=== PATIENT | female | born 1995 | race Caucasian/White ===

== ENCOUNTER 2017-08-09 23:00 | Emergency (ER) | payer SELFPAY ==
[~2017-08-09] VITALS: Ht 167.6 cm; Wt 81.0 kg
[2017-08-09 23:02] VITALS: BP 129/85; PULSE 91; RESP 16; TEMP 98.1; O2SAT 98
[2017-08-10 00:38] VITALS: BP 124/73; PULSE 71; RESP 18; TEMP 98.6; O2SAT 100
--- NOTE | 2017-08-10 00:53 | PD ---
HPI Chief Complaint: Eye Problems/Injury Time Seen by Provider: 00:43 Travel History International Travel<30 days: No Contact w/Intl Traveler<30days: No Traveled to known affect area: No History of Present Illness HPI The patient is a 22 year old female who presents to the [facility] emergency department with a history of swelling to the right eye that began again 2 days ago. It is painful. She has had a clear to yellow drainage. She has been doing warm compresses every 2 hours. She first started 4 years ago. She has had cough and congestion for the last 2 days. She has intermittent swelling of the bump every 2 months, but the last time her eye became this swollen was a year and a half ago. She saw an eye doctor at that time that recommended no additional treatment. The patient reports that she does wear contacts and eye glasses. She reports her vision is poor that she requires both. She is currently wearing her contacts. She reports that she suffers from macular degeneration and astigmatism. She reports that she is legally blind. Review of systems otherwise, the patient denies having any neck pain, chest pain, shortness of breath, abdominal pain, vomiting, diarrhea, urinary symptoms, or neurologic symptoms. LMP: beginning of July. H/O Irregular cycles. Status post BTL. [facility] Past Medical History Narrative Medical The patient's past medical history is significant for right eye cyst in the upper eyelid, macular degeneration of the eyes, astigmatism, anxiety, frequent utis. Autoimmune Disease: No Blood Disorders: No Anxiety: Yes Depression: No Cardiovascular Problems: No Developmental Delay: No Diminished Hearing: No Gastrointestinal Disorders: No Genitourinary: Yes (HX UTI; MULTIPLE YEAST INFECTIONS) Musculoskeletal: No Neurologic: Yes Psychiatric: Yes Reproductive: Yes (MULTIPLE YEAST INFECTIONS ) Respiratory: No Immunizations Current: Yes Tetanus Vaccination: < 5 Years Influenza Vaccination: No ?: Not : 2 Para: 1 Miscarriage: 0 : 0 Past Surgical History Narrative Surgical The patient's past surgical history is significant for c-sections x2, BTL. Section: Yes Gynecologic Surgery: Yes () Other Surgery: Yes Social History Alcohol Use: No Tobacco Use: Yes (4 cigs per day.) Substance Use: No Allergies-Medications (Allergen,Severity, Reaction): Coded Allergies: No Known Allergies (Verified Adverse Reaction, Unknown, 08/09/17) Reported Meds & Prescriptions Reported Meds & Active Scripts Active Tobramycin Opth Drops 0.3 % Soln 2 Drop RIGHT EYE Q4H Keflex (Cephalexin) 500 Mg Cap 500 Mg PO Q8H Narrative Medication None. Review of Systems Except as stated in HPI: all other systems reviewed are Neg General / Constitutional: No: Fever Eyes: Positive: Drainage, Redness, Foreign Body Sensation, Pain, Tearing, No: Visual changes HENT: Positive: Congestion, No: Headaches Cardiovascular: No: Chest Pain or Discomfort Respiratory: Positive: Cough, No: Shortness of Breath Gastrointestinal: No: Nausea, Vomiting, Diarrhea, Abdominal Pain Genitourinary: No: Dysuria Musculoskeletal: No: Pain Skin: No Rash Neurologic: No: Weakness Psychiatric: No: Depression Endocrine: No: Polydipsia Hematologic/Lymphatic: No: Easy Bruising Physical Exam Narrative General: The patient is a well-developed well-nourished female in no acute distress. Head and Neck exam: Head is normocephalic atraumatic. Eyes: EOMI, pupils are equal round and reactive to light. The patient initially on my arrival to the room is noted to have both contacts eyes. The contacts were removed. The patient has conjunctival injection of the right eye. The patient has swelling of the upper lid of the right eye with erythema of the upper lid noted. There is no stye versus visualized. The patient has no vesicle formation. The patient has no open wounds associated with this. The patient on fluorecin testing of the right eye had no dendrite formation. No ulceration or abrasion noted. Nose: Midline septum with pink mucous membranes Mouth: Dentition unremarkable. Moist mucus membranes. Posterior oropharynx is not erythematous. No tonsillar hypertrophy. Uvula midline. Airway patent. Neck: No palpable lymphadenopathy. No nuchal rigidity. No thyromegaly. Cardiovascular: Regular rate and rhythm without murmurs, gallops, or rubs. No pulse deficit to the extremities. Lungs: Clear to auscultation bilaterally. No wheezes, rhonchi, or rales. Abdomen: Soft, without tenderness to palpation in all 4 quadrants of the abdomen. No guarding, rebound, or rigidity. Normal bowel sounds are audible. No tenderness on palpation of McBurney's point. Extremities: No clubbing, cyanosis, or edema. 2+ pulses in all 4 extremities. Back: No spinous process tenderness to palpation. No costovertebral angle tenderness to palpation. Neurologic Exam: Grossly nonfocal. Skin Exam: No rash noted. Intact skin that is warm and dry. Data Data Last Documented VS Vital Signs Date Time Temp Pulse Resp B/P (MAP) Pulse Ox O2 Delivery O2 Flow Rate FiO2 08/10/17 04:10 08/10/17 02:41 18 99 Room Air 08/10/17 00:38 98.6 71 Orders Orders Complete Blood Count With Diff (08/10/17 02:00) Comprehensive Metabolic Panel (08/10/17 02:00) C-Reactive Protein (Crp) (08/10/17 02:00) Iv Access Insert/Monitor (08/10/17 02:00) Ecg Monitoring (08/10/17 02:00) Oximetry (08/10/17 02:00) Ed Urine Pregnancytest Poc (08/10/17 02:00) Ct Facial Bones W Iv Contrast (08/10/17 ) Cefazolin 2 Gm Premix (Ancef 2 Gm Premix (08/10/17 02:00) Proparacaine 0.5% Opth Soln (Alcaine 0.5 (08/10/17 02:00) Iohexol 350 Inj (Omnipaque 350 Inj) (08/10/17 03:08) Labs Laboratory Tests Test 08/10/17 02:40 08/10/17 03:10 Blood Urea Nitrogen 6 MG/DL Creatinine 0.56 MG/DL Random Glucose 91 MG/DL Total Protein 7.7 GM/DL Albumin 3.4 GM/DL Calcium Level 8.8 MG/DL Alkaline Phosphatase 84 U/L Aspartate Amino Transf (AST/SGOT) 35 U/L Alanine Aminotransferase (ALT/SGPT) 23 U/L Total Bilirubin 0.4 MG/DL Sodium Level 138 MEQ/L Potassium Level 4.2 MEQ/L Chloride Level 104 MEQ/L Carbon Dioxide Level 27.3 MEQ/L Anion Gap 7 MEQ/L Estimat Glomerular Filtration Rate 133 ML/MIN C-Reactive Protein 4.58 MG/DL White Blood Count 5.4 TH/MM3 Red Blood Count 3.71 MIL/MM3 Hemoglobin 10.7 GM/DL Hematocrit 31.8 % Mean Corpuscular Volume 85.9 FL Mean Corpuscular Hemoglobin 28.7 PG Mean Corpuscular Hemoglobin Concent 33.5 % Red Cell Distribution Width 13.6 % Platelet Count 153 TH/MM3 Mean Platelet Volume 8.8 FL Neutrophils (%) (Auto) 62.3 % Lymphocytes (%) (Auto) 26.3 % Monocytes (%) (Auto) 8.4 % Eosinophils (%) (Auto) 2.4 % Basophils (%) (Auto) 0.6 % Neutrophils # (Auto) 3.4 TH/MM3 Lymphocytes # (Auto) 1.4 TH/MM3 Monocytes # (Auto) 0.5 TH/MM3 Eosinophils # (Auto) 0.1 TH/MM3 Basophils # (Auto) 0.0 TH/MM3 CBC Comment DIFF FINAL Differential Comment MDM Medical Decision Making Medical Screen Exam Complete: Yes Emergency Medical Condition: Yes Medical Record Reviewed: Yes Differential Diagnosis Periorbital cellulitis, versus blepharitis, versus orbital cellulitis, versus orbital abscess, versus conjunctivitis Narrative Course During the course of the patients emergency department visit, the patients history, examination, and differential diagnosis were reviewed with the patient. The patient was placed on a conveyor monitor with oximetry and frequent blood pressure monitoring. The patient had IV access obtained and blood work sent for analysis. The patient had anesthetic eyedrops applied to the right eye and she removed her contacts. The patient was initially provided Ancef 2 g IV. The patients laboratory studies were reviewed and remarkable for a white count of 5.4, hemoglobin 10.7, platelets 153 with 8.4 monos, CMP is remarkable for a BUN of 6, C-reactive protein 4.58 Radiology studies were reviewed and remarkable for CT scan of the maxillofacial bones and orbits with IV contrast reveals preseptal soft tissue swelling without evidence of abscess, sinus disease, abnormal shape of the globes bilaterally but concern etiology. The patient does report having a history of astigmatism and macular degeneration of the eyes. The patient on reexamination has had some improvement in the swelling of her right upper eyelid. The patient will be discharged home to follow-up with the custodian manager. The patient is resting comfortably and feels better, is alert and in no distress. The patients results and examination findings were discussed with the patient. The repeat examination is unremarkable and benign. The history, exam, diagnostic testing, and current condition do not suggest any significant pathology to warrant further testing, continued ED treatment, admission, or surgical evaluation at this point. The vital signs have been stable. The patient does not have uncontrollable pain, intractable vomiting, or other significant symptoms. The patient's condition is stable and appropriate for discharge. The patient will pursue further outpatient evaluation with a primary care physician or other designated or consulting physician as indicated in the discharge instructions. The patient expressed understanding and was agreeable with this plan. Diagnosis Primary Impression: Blepharitis of eyelid of right eye Qualified Codes: H01.001 - Unspecified blepharitis right upper eyelid Additional Impression: Conjunctivitis Qualified Codes: H10.31 - Unspecified acute conjunctivitis, right eye Referrals: Mi Thurston MD 1 day Additional Instructions: Avoid wearing contacts until your infection has completely resolved. Med/Other Pt SpecificInfo: Prescription(s) given Scripts Tobramycin Opth Drops (Tobramycin Opth Drops) 0.3 % Soln 2 DROP RIGHT EYE Q4H for Infection, #1 BOTTLE 0 Refills Prov: Jovita Sellers MD 08/10/17 Cephalexin (Keflex) 500 Mg Cap 500 MG PO Q8H for Infection, #30 CAP 0 Refills Prov: Jovita Sellers MD 08/10/17 Disposition: 01 DISCHARGE HOME Condition: Stable Jovita Sellers MD Aug 10, 2017 00:53
[2017-08-10] MEDS ORDERED: PROPARACAINE HCL 0.5% OPHT SOLN 15 ML BTL RIGHT EYE ONE (02:00)
[2017-08-10] MEDS ORDERED: ceFAZolin 2 GM PREMIX 50 ML IV ONE (02:00)
[2017-08-10 02:41] VITALS: RESP 18; O2SAT 99
[2017-08-10] MEDS ORDERED: IOHEXOL 350 MG/ML 10 ML VIAL (for RAD DIAG) IVCONTRAST ONE (03:08)
[2017-08-10 03:22] LABS: ALKALINE PHOSPHATASE 84 U/L (45-117); TOTAL BILIRUBIN ADULT 0.4 MG/DL (0.2-1.0)
[2017-08-10 03:28] LABS: ALT (GPT) 23 U/L (10-53); ANION GAP 7 MEQ/L (5-15); AST (GOT) 35 U/L (15-37); BICARBONATE 27.3 MEQ/L (21.0-32.0); BLOOD UREA NITROGEN 6 MG/DL (7-18); CHLORIDE 104 MEQ/L (98-107); GLOMERULAR FILTRATION RATE 133 ML/MIN (>89); SODIUM (NA) 138 MEQ/L (136-145)
[2017-08-10 03:32] LABS: POTASSIUM 4.2 MEQ/L (3.5-5.1)
[2017-08-10 03:34] LABS: AUTOMATED NEUTROPHIL # 3.4 TH/MM3 (1.8-7.7); BASOPHIL % 0.6 % (0.0-2.0); EOSINOPHIL # 0.1 TH/MM3 (0-0.4); EOSINOPHIL % 2.4 % (0.0-4.0); HEMATOCRIT 31.8 % (35.0-46.0); HEMO FLAGS DIFF FINAL; LYMPH % 26.3 % (9.0-44.0); LYMPHOCYTE # 1.4 TH/MM3 (1.0-4.8); MEAN CELL VOLUME 85.9 FL (80.0-100.0); MEAN CORPUSCULAR HEMOGLOBIN 28.7 PG (27.0-34.0); MEAN CORPUSCULAR HGB CONC 33.5 % (32.0-36.0); MONO % 8.4 % (0.0-8.0); NEUT % 62.3 % (16.0-70.0); PLATELET COUNT 153 TH/MM3 (150-450); RED BLOOD COUNT 3.71 MIL/MM3 (4.00-5.30); RED CELL DISTRIBUTION WIDTH 13.6 % (11.6-17.2); WHITE BLOOD COUNT 5.4 TH/MM3 (4.0-11.0)
--- NOTE | 2017-08-10 03:48 | RADRPT ---
EXAM DATE/TIME: 08/10/2017 02:56 [place] COMPARISON: No previous studies available for comparison. INDICATIONS : Right eye redness and swelling. Evaluate for abscess. IV CONTRAST: 70 cc Omnipaque 350 (iohexol) IV RADIATION DOSE: 41.25 CTDIvol (mGy) MEDICAL HISTORY : None SURGICAL HISTORY : None. ENCOUNTER: Initial ACUITY: 2 days PAIN SCALE: 6/10 LOCATION: Right facial TECHNIQUE: Volumetric scanning of the facial bones was performed. Using automated exposure control and adjustme nt of the mA and/or kV according to patient size, radiation dose was kept as low as reasonably achiev able to obtain optimal diagnostic quality images. DICOM format image data is available electronicall y for review and comparison. FINDINGS: There is exophthalmos bilaterally with abnormally shaped lobes which have a teardrop configuration. T he lenses are in normal position. There is redundancy of the optic nerves bilaterally. No vitreous he morrhage is identified. There is preseptal soft tissue swelling on the right. Macro abscess. There is mucosal disease involving the ethmoid air cells bilaterally as well as the maxillary antra w ith obstruction of the ethmoid infundibula bilaterally. CONCLUSION: 1. Preseptal soft tissue swelling without evidence of abscess. 2. Sinus disease as above. 3. Abnormal shape of the globes bilaterally of uncertain etiology. Jono Roque MD on August 10, 2017 at 3:40 Board Certified Radiologist. This report was verified electronically.
[2017-08-10] MEDS ORDERED: AK-T0.3S RIGHT EYE (03:54)
[2017-08-10] MEDS ORDERED: CEPH-460 PO (03:54)
== END 2017-08-10 04:18 | disposition home or self-care (01) ==
LOC: NEPE 23:00
DX: H01.001 Unspecified blepharitis right upper eyelid (principal); H10.31 Unspecified acute conjunctivitis, right eye; H52.209 Unspecified astigmatism, unspecified eye; H35.30 Unspecified macular degeneration; F41.9 Anxiety disorder, unspecified; F17.210 Nicotine dependence, cigarettes, uncomplicated
CPT/HCPCS: 70487; 80053; 84703; 85025; 86140; 96365; 99285; J0690; Q9967